=== PATIENT | female | born 1955 | race Caucasian/White ===

== ENCOUNTER 2018-02-15 07:56 | Inpatient (IN) | payer MEDICAID ==
[~2018-02-15] VITALS: Ht 157.5 cm; Wt 81.6 kg
[2018-02-15 08:24] LABS: BASOPHILS % 0.5 % (0.0-2.0); EOSINOPHILS % 3.6 % (0.0-5.0); HEMOGLOBIN. 13.8 g/dL (12.0-16.0); LYMPHOCYTES % 27.8 % (20.0-50.0); MEAN CORPUSCULAR HEMOGLOBIN 30.3 pg (28.0-32.0); MEAN CORPUSCULAR VOLUME 85.7 fL (81.0-99.0); MEAN PLATELET VOLUME 7.9 fl (7.4-10.4); MONOCYTES % 7.2 % (2.0-8.0); NEUTROPHILS % 60.9 % (40.0-76.0); PLATELET 319 x1000/uL (130-400); RED BLOOD CELL COUNT 4.55 mill/uL (4.2-5.4); RED CELL DISTRIBUTION WIDTH 13.6 % (11.6-14.6)
[2018-02-15 08:28] LABS: CHLORIDE 107 mEq/L (98-107)
[2018-02-15 08:29] LABS: PROTHROMBIN TIME 10.5 sec (9.4-11.6)
[2018-02-15 08:32] LABS: ETHANOL BLOOD < 10 mg/dL
[2018-02-15] MEDS ORDERED: IOHEXOL-350 100 ML BOTTLE ONE (09:37)
[2018-02-15 10:37] LABS: *COCAINE SCREEN URINE NEGATIVE (NEGATIVE)
[2018-02-15 10:39] LABS: *BARBITURATES SCREEN URINE NEGATIVE (NEGATIVE); CANNABINOID URINE SCREEN NEGATIVE (NEGATIVE)
[2018-02-15 10:40] LABS: PHENCYCLIDINE URINE SCREEN NEGATIVE (NEGATIVE)
[2018-02-15 10:41] LABS: *BENZODIAZEPINES SCREEN URINE NEGATIVE (NEGATIVE)
[2018-02-15 10:42] LABS: OPIATES URINE SCREEN NEGATIVE (NEGATIVE)
[2018-02-15 10:45] LABS: METHADONE URINE SCREEN NEGATIVE (NEGATIVE)
[2018-02-15 10:46] LABS: *AMPHETAMINES SCREEN URINE NEGATIVE (NEGATIVE)
[2018-02-15 12:46] LABS: CLARITY URINE CLEAR (CLEAR); COLOR URINE YELLOW (YELLOW); KETONES URINE NEGATIVE (NEGATIVE); LEUKOCYTE ESTERASE URINE NEGATIVE (NEGATIVE); NITRITE URINE NEGATIVE (NEGATIVE); OCCULT BLOOD URINE 1+ (NEGATIVE); PH URINE 8.5 (4.5-8.0); PROTEIN URINE NEGATIVE (NEGATIVE); SPECIFIC GRAVITY URINE 1.036 (1.005-1.030); UROBILINOGEN URINE 0.2 E.U./dL (0.2-1.0)
[2018-02-15] MEDS ORDERED: IPRATROPIUM/ALBUTEROL 0.5-3(2.5)MG/3ML NEB INH PRN (13:00)
[2018-02-15] MEDS ORDERED: ONDANSETRON HCL 4MG/2ML VIAL IV PRN (13:00)
[2018-02-15] MEDS ORDERED: MAGNESIUM/ALUMINUM HYDROXIDE/SIMETHICONE 30ML UDC PO PRN (13:00)
[2018-02-15] MEDS ORDERED: DOCUSATE SODIUM 100MG CAPSULE PO PRN (13:00)
[2018-02-15] MEDS ORDERED: CLONIDINE 0.1MG TABLET PO PRN (13:00)
[2018-02-15] MEDS ORDERED: HYDROCODONE/ACETAMINOPHEN 5/325MG TABLET PO PRN (13:00)
[2018-02-15] MEDS ORDERED: ACETAMINOPHEN 325MG TABLET PO PRN (13:00)
[2018-02-15] MEDS: ENOXAPARIN 40MG/0.4ML SYR SUBCUT SCH (14:01)
[2018-02-15 14:43] LABS: CREATINE KINASE 214 IU/L (26-192)
[2018-02-15 14:45] LABS: CREATINE KINASE MB FRACTION 3.3 ng/mL (0.5-3.6)
[2018-02-15 18:09] LABS: T4 FREE 0.85 ng/dL (0.76-1.46)
[2018-02-15 18:30] LABS: FOLIC ACID (FOLATE) SERUM >20 ng/mL ng/mL (>5.38)
[2018-02-15 18:37] LABS: VITAMIN B12 SERUM 628 pg/mL (211-911)
[2018-02-15 23:00] VITALS: BP 164/74
[2018-02-15 23:14] LABS: CREATINE KINASE 173 IU/L (26-192)
[2018-02-15 23:15] LABS: CREATINE KINASE MB FRACTION 2.2 ng/mL (0.5-3.6)
[2018-02-16] VITALS: BP 164/76
[2018-02-16 04:00] VITALS: BP 106/57
[2018-02-16 07:41] LABS: BASOPHILS % 0.3 % (0.0-2.0); EOSINOPHILS % 2.9 % (0.0-5.0); LYMPHOCYTES % 30.6 % (20.0-50.0); MEAN CORPUSCULAR HEMOGLOBIN 29.4 pg (28.0-32.0); MEAN CORPUSCULAR VOLUME 86.2 fL (81.0-99.0); MEAN PLATELET VOLUME 8.2 fl (7.4-10.4); MONOCYTES % 6.6 % (2.0-8.0); NEUTROPHILS % 59.6 % (40.0-76.0); PLATELET 322 x1000/uL (130-400); RED BLOOD CELL COUNT 4.41 mill/uL (4.2-5.4); RED CELL DISTRIBUTION WIDTH 13.6 % (11.6-14.6)
[2018-02-16 08:00] VITALS: BP_SYST 121; BP_SYST 138; BP_DIAS 64; BP_DIAS 67; BP_DIAS 76
[2018-02-16] MEDS ORDERED: ASPIRIN 81MG EC TABLET PO SCH (09:00)
[2018-02-16] MEDS: ENOXAPARIN 40MG/0.4ML SYR SUBCUT SCH (09:14)
[2018-02-16] MEDS: CLOPIDOGREL 75MG TABLET PO SCH (09:14)
[2018-02-16] MEDS: LISINOPRIL 10MG TABLET PO SCH (09:15)
[2018-02-16 12:00] VITALS: BP 121/65
[2018-02-16 13:45] LABS: CHLORIDE 107 mEq/L (98-107)
[2018-02-16 13:54] LABS: PHOSPHORUS 3.3 mg/dL (2.5-4.9)
[2018-02-16] MEDS ORDERED: DEXTROSE 50% WATER 50ML SYRINGE IV PRN (14:45)
[2018-02-16 15:17] VITALS: BP 134/61
[2018-02-16] MEDS: INSULIN LISPRO 100 UNITS/ML SUBCUT SCH ×2 (17:15→20:53)
[2018-02-16] MEDS: BLOOD SUGAR DIAGNOSTIC STRIP TEST SCH ×2 (17:15→20:53)
[2018-02-16 20:00] VITALS: BP 106/60
[2018-02-16] MEDS: ATORVASTATIN CALCIUM 40MG TABLET PO SCH (21:04)
[2018-02-17] VITALS: BP 110/50
[2018-02-17 04:00] VITALS: BP 118/61
[2018-02-17] MEDS: BLOOD SUGAR DIAGNOSTIC STRIP TEST SCH ×4 (05:57→20:44)
[2018-02-17] MEDS: INSULIN LISPRO 100 UNITS/ML SUBCUT SCH ×4 (06:02→20:43)
[2018-02-17 07:10] LABS: BASOPHILS % 0.3 % (0.0-2.0); EOSINOPHILS % 2.7 % (0.0-5.0); HEMATOCRIT. 39.1 % (36.0-48.0); HEMOGLOBIN. 13.4 g/dL (12.0-16.0); LYMPHOCYTES % 26.9 % (20.0-50.0); MEAN CORPUSCULAR HEMOGLOBIN 29.5 pg (28.0-32.0); MEAN CORPUSCULAR VOLUME 86.4 fL (81.0-99.0); MONOCYTES % 7.7 % (2.0-8.0); NEUTROPHILS % 62.4 % (40.0-76.0); PLATELET 336 x1000/uL (130-400); RED BLOOD CELL COUNT 4.52 mill/uL (4.2-5.4); RED CELL DISTRIBUTION WIDTH 13.9 % (11.6-14.6)
[2018-02-17 08:00] VITALS: BP 115/56
[2018-02-17] MEDS: CLOPIDOGREL 75MG TABLET PO SCH (08:35)
[2018-02-17] MEDS: LISINOPRIL 10MG TABLET PO SCH (08:35)
[2018-02-17 08:38] LABS: CHLORIDE 106 mEq/L (98-107)
[2018-02-17 08:49] LABS: PHOSPHORUS 3.6 mg/dL (2.5-4.9)
[2018-02-17 12:00] VITALS: BP 106/54
[2018-02-17] MEDS: ENOXAPARIN 40MG/0.4ML SYR SUBCUT SCH (13:50)
[2018-02-17 16:00] VITALS: BP 127/68
[2018-02-17 20:00] VITALS: BP 121/67
[2018-02-17] MEDS: ATORVASTATIN CALCIUM 40MG TABLET PO SCH (20:40)
[2018-02-18] VITALS: BP 109/54
[2018-02-18 04:00] VITALS: BP 96/46
[2018-02-18] MEDS: BLOOD SUGAR DIAGNOSTIC STRIP TEST SCH (06:05)
[2018-02-18] MEDS: INSULIN LISPRO 100 UNITS/ML SUBCUT SCH (06:05)
[2018-02-18 08:00] VITALS: BP 116/57
[2018-02-18] MEDS: LISINOPRIL 10MG TABLET PO SCH (10:28)
[2018-02-18] MEDS: CLOPIDOGREL 75MG TABLET PO SCH (10:28)
[2018-02-18 12:00] VITALS: BP 136/69
[2018-02-18 12:22] VITALS: BP 136/69
[2018-02-18 12:33] VITALS: BP 136/69
== END 2018-02-18 13:10 | disposition home or self-care (01) | DRG 47 ==
LOC: ER 08:23 → 7WST 12:20 → EDBEDREQTM 12:23 → EDBEDREQSVC 12:23 → EDBEDREQ 12:23 → ENRESERV 20:29
PROVIDERS: ADMIT Internal Medicine; ATTEND Internal Medicine
DX: G45.9 Transient cerebral ischemic attack, unspecified (principal); I10 Essential (primary) hypertension; E11.9 Type 2 diabetes mellitus without complications; M47.892 Other spondylosis, cervical region; H53.8 Other visual disturbances; R26.9 Unspecified abnormalities of gait and mobility; E78.5 Hyperlipidemia, unspecified; Z79.899 Other long term (current) drug therapy; Z98.51 Tubal ligation status
CPT/HCPCS: 36415; 70450; 70496; 70498; 70551; 71045; 72141; 80048; 80053; 80061; 80305; 81003; 82550; 82553; 82607; 82746; 82962; 83036; 83735; 84100; 84439; 84443; 84481; 84484; 85025; 85610; 93005; 93306; 93880; 93970; 97162; 97166; 99285; G0482; J1650; Q9967

== ENCOUNTER 2022-03-19 21:08 | Emergency (ER) | payer MEDICARE, OTHER ==
[~2022-03-19] VITALS: Ht 160 cm; Wt 82.0 kg
[2022-03-20 02:30] VITALS: BP 135/90
[2022-03-20] MEDS ORDERED: LOSA50TA41 MT (02:44)
== END 2022-03-20 02:55 | disposition home or self-care (01) ==
LOC: ER 21:08
DX: T78.40XA Allergy, unspecified, initial encounter (principal); I10 Essential (primary) hypertension; X58.XXXA Exposure to other specified factors, initial encounter; Z20.822 Contact with and (suspected) exposure to COVID-19
CPT/HCPCS: 71045; 87426; 87804; 99284; C9803

== ENCOUNTER 2023-04-03 12:52 | Emergency (ER) | payer MEDICARE, MEDICAID ==
[~2023-04-03] VITALS: Ht 165.1 cm; Wt 80.0 kg
[~2023-04-03 12:52] MED LIST: LOSA50TA41 MT
[2023-04-03 12:59] VITALS: BP 146/78
[2023-04-03] MEDS ORDERED: BENZ100C86 MT (15:00)
== END 2023-04-03 15:12 | disposition home or self-care (01) ==
LOC: ER 12:52
DX: J06.9 Acute upper respiratory infection, unspecified (principal); B97.89 Other viral agents as the cause of diseases classified elsewhere; I10 Essential (primary) hypertension
CPT/HCPCS: 71046; 81025; 99283